=== PATIENT | male | born 1995 | race Two or more races ===

== ENCOUNTER 2017-11-06 00:31 | Emergency (ER) | payer OTHER ==
[~2017-11-06] VITALS: Ht 170.2 cm; Wt 78.5 kg
--- NOTE | 2017-11-06 00:39 | ED.ADGEN ---
Adult General Chief Complaint Chief Complaint " I did not eat well earlier today.. and probably got a little dry... I call the medic... and they had me eat and push fluids... I got dizzy at the gym tonight and some cramping in my muscles..." HPI HPI Patient is a 22 year old male who presents with above hx and complaints of dizzy episode and leg and arm cramps at the gym tonight while working out. Pt. up to date with vaccinations. No recent travel. Did spend the whole day at range, and in training. Very little to eat or drink. [facility] [employer] and was working out again and developed leg, arm, chest and flank muscle spasms. Pt. denies any specific trauma, travel or ill contacts. Pt. only urinated once today. Pt. normally healthy. Review of Systems Review of Systems Constitutional: Denies fever or chills [] Eyes: Denies change in visual acuity, redness, or eye pain [] HENT: Denies nasal congestion or sore throat [] Respiratory: Denies cough or shortness of breath [] Cardiovascular: No additional information not addressed in HPI [] GI: Denies abdominal pain, nausea, vomiting, bloody stools or diarrhea [] : Denies dysuria or hematuria [] Musculoskeletal: Denies back pain or joint pain []Muscle cramps Integument: Denies rash or skin lesions [] Neurologic: Denies headache, focal weakness or sensory changes []Dizzy episode Endocrine: Denies polyuria or polydipsia [] All other systems were reviewed and found to be within normal limits, except as documented in this note. Family History Family History Non-contributory Current Medications Current Medications Current Medications Medications (Trade) Dose Ordered Sig/Raji Start Time Stop Time Status Last Admin Dose Admin Ketorolac Tromethamine (Toradol) 30 mg 1X ONCE 11/06/17 01:30 11/06/17 01:31 DC 11/06/17 01:34 30 MG Lactated Ringer's 1,000 ml @ 1,000 mls/hr Q1H 11/06/17 01:00 11/06/17 01:59 DC 11/06/17 01:33 1,000 MLS/HR Magnesium Hydroxide (Milk Of Magnesia) 2,400 mg 1X ONCE 11/06/17 02:15 11/06/17 02:46 DC 11/06/17 02:15 2,400 MG Ondansetron HCl (Zofran) 8 mg 1X ONCE 11/06/17 01:30 11/06/17 01:31 DC 11/06/17 01:34 8 MG Potassium Chloride (KCl Oral Soln) 40 meq 1X ONCE 11/06/17 02:30 11/06/17 02:46 DC 11/06/17 02:30 40 MEQ Allergies Allergies Allergies Coded Allergies Type Severity Reaction Last Updated Verified No Known Drug Allergies 11/06/17 No Physical Exam Physical Exam Constitutional: Well developed, well nourished, no acute distress, non-toxic appearance. [] HENT: Normocephalic, atraumatic, bilateral external ears normal, oropharynx moist, no oral exudates, nose normal. [] Eyes: PERRLA, EOMI, conjunctiva normal, no discharge. [] Neck: Normal range of motion, no tenderness, supple, no stridor. [] Cardiovascular:Heart rate regular rhythm, no murmur [] Lungs & Thorax: Bilateral breath sounds clear to auscultation [] Abdomen: Bowel sounds normal, soft, no tenderness, no masses, no pulsatile masses. [] Skin: Warm, dry, no erythema, no rash. [] Back: No tenderness, no CVA tenderness. [] Extremities: No tenderness, no cyanosis, no clubbing, ROM intact, no edema. [] No cording. Neurologic: Alert and oriented X 3, normal motor function, normal sensory function, no focal deficits noted. []DTR's +2 patella and brachial. 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 Ambulatory without problems Psychologic: Affect normal, judgement normal, mood normal. [] Current Patient Data Vital Signs Vital Signs Date Time Temp Pulse Resp B/P (MAP) Pulse Ox O2 Delivery O2 Flow Rate FiO2 11/06/17 02:45 64 18 125/73 (90) 100 Room Air 11/06/17 00:32 98.2 Lab Results Laboratory Tests Test 11/06/17 00:40 11/06/17 01:10 Urine Collection Type Unknown Urine Color Yellow Urine Clarity Clear Urine pH 7.0 Urine Specific [place] <=1.005 Urine Protein Neg (NEG-TRACE) Urine Glucose (UA) Neg mg/dL (NEG) Urine Ketones (Stick) Neg mg/dL (NEG) Urine Blood Neg (NEG) Urine Nitrite Neg (NEG) Urine Bilirubin Neg (NEG) Urine Urobilinogen Dipstick 0.2 mg/dL (0.2 mg/dL) Urine Leukocyte Esterase Neg (NEG) Urine RBC 0 /HPF (0-2) Urine WBC Rare /HPF (0-4) Urine Squamous Epithelial Cells None /LPF Urine Bacteria 0 /HPF (0-FEW) White Blood Count 8.8 x10^3/uL (4.0-11.0) Red Blood Count 5.73 x10^6/uL (4.30-5.70) H Hemoglobin 17.1 g/dL (13.0-17.5) Hematocrit 49.8 % (39.0-53.0) Mean Corpuscular Volume 87 fL (79-100) Mean Corpuscular Hemoglobin 30 pg (25-35) Mean Corpuscular Hemoglobin Concent 34 g/dL (31-37) Red Cell Distribution Width 12.8 % (11.5-14.5) Platelet Count 329 x10^3/uL (140-400) Neutrophils (%) (Auto) 54 % (31-73) Lymphocytes (%) (Auto) 34 % (24-48) Monocytes (%) (Auto) 11 % (0-9) H Eosinophils (%) (Auto) 2 % (0-3) Basophils (%) (Auto) 1 % (0-3) Neutrophils # (Auto) 4.7 x10^3uL (1.8-7.7) Lymphocytes # (Auto) 3.0 x10^3/uL (1.0-4.8) Monocytes # (Auto) 0.9 x10^3/uL (0.0-1.1) Eosinophils # (Auto) 0.1 x10^3/uL (0.0-0.7) Basophils # (Auto) 0.0 x10^3/uL (0.0-0.2) Prothrombin Time 11.0 SEC (9.4-11.4) Prothrombin Time INR 1.1 (0.9-1.1) PTT 24 SEC (23-33) Sodium Level 141 mmol/L (136-145) Potassium Level 3.4 mmol/L (3.5-5.1) L Chloride Level 101 mmol/L (98-107) Carbon Dioxide Level 28 mmol/L (21-32) Anion Gap 12 (6-14) Blood Urea Nitrogen 15 mg/dL (8-26) Creatinine 0.9 mg/dL (0.7-1.3) Estimated GFR (Cockcroft-Gault) 104.6 Glucose Level 89 mg/dL (70-99) Calcium Level 9.8 mg/dL (8.5-10.1) Total Bilirubin 0.6 mg/dL (0.2-1.0) Direct Bilirubin 0.1 mg/dL (0.0-0.2) Aspartate Amino Transferase (AST) 21 U/L (15-37) Alanine Aminotransferase (ALT) 43 U/L (16-63) Alkaline Phosphatase 47 U/L (46-116) Creatine Kinase 178 U/L (39-308) Creatine Kinase MB (Mass) 1.2 ng/mL (0.0-3.6) Creatine Kinase MB Relative Index 0.7 % (0-4) Troponin I Quantitative < 0.017 ng/mL (0-0.055) Total Protein 8.2 g/dL (6.4-8.2) Albumin 4.2 g/dL (3.4-5.0) EKG EKG My interpretation of EKG shows sinus 63. No findings for STEMI with contralateral changes. [] Radiology/Procedures Radiology/Procedures I interpretation acute abdomen shows increased stool. No free air in the diaphragm. Chest shows no acute cardiopulmonary findings[] Course & Med Decision Making Course & Med Decision Making Pertinent Labs and Imaging studies reviewed. (See chart for details)- Push fruit juices. Follow up with [facility]. Return if any concerns. [] Final Impression Final Impression 1. Dehydration[] 2. Hypokalemia Problems: Dragon Disclaimer Dragon Disclaimer This electronic medical record was generated, in whole or in part, using a voice recognition dictation system. TOM PICKETT MD Nov 06, 2017 00:39
[2017-11-06] MEDS ORDERED: IV RINGERS SOLUTION,LACTATED 1,000 ML IV SCH (01:00)
--- NOTE | 2017-11-06 01:12 | EKG ---
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
[2017-11-06] MEDS ORDERED: KETOROLAC 30 MG/ML VIAL. IV ONE (01:30)
[2017-11-06] MEDS ORDERED: ONDANSETRON PF 4 MG/2 ML VIAL. IV ONE (01:30)
[2017-11-06 01:50] LABS: BASO % 1 % (0-3); EOS # 0.1 x10^3/uL (0.0-0.7); EOS % 2 % (0-3); HEMATOCRIT 49.8 % (39.0-53.0); HEMOGLOBIN 17.1 g/dL (13.0-17.5); LYMPH % 34 % (24-48); MEAN CORPUSCULAR HEMOGLOBIN 30 pg (25-35); MEAN CORPUSCULAR HGB CONC 34 g/dL (31-37); MEAN CORPUSCULAR VOLUME 87 fL (79-100); MONO # 0.9 x10^3/uL (0.0-1.1); MONO % 11 % (0-9); NEUT # 4.7 x10^3uL (1.8-7.7); NEUT % 54 % (31-73); PLATELET COUNT 329 x10^3/uL (140-400); RED BLOOD COUNT 5.73 x10^6/uL (4.30-5.70); RED CELL DISTRIBUTION WIDTH 12.8 % (11.5-14.5); WHITE BLOOD COUNT 8.8 x10^3/uL (4.0-11.0)
[2017-11-06 01:56] LABS: BILIRUBIN,URINE NEG (NEG); CLARITY,URINE CLEAR; COLOR,URINE YELLOW; GLUCOSE,URINE NEG (NEG)
[2017-11-06 01:57] LABS: BACTERIA,URINE 0 /HPF (0-FEW); NITRITE,URINE NEG (NEG); RBC,URINE 0 /HPF (0-2); UROBILINOGEN,URINE 0.2 mg/dL (0.2 mg/dL); WBC,URINE RARE /HPF (0-4)
[2017-11-06 02:08] LABS: ALBUMIN 4.2 g/dL (3.4-5.0); CALCIUM 9.8 mg/dL (8.5-10.1); CREATININE 0.9 mg/dL (0.7-1.3); DIRECT BILIRUBIN 0.1 mg/dL (0.0-0.2); GFR 104.6; POTASSIUM 3.4 mmol/L (3.5-5.1); TOTAL BILIRUBIN 0.6 mg/dL (0.2-1.0); TOTAL PROTEIN 8.2 g/dL (6.4-8.2)
[2017-11-06] MEDS ORDERED: MAGNESIUM HYDROXIDE 2,400 MG/30 ML ORAL.SUSP. PO ONE (02:15)
[2017-11-06] MEDS ORDERED: POTASSIUM CHLORIDE 20 MEQ/15 ML ORAL LIQUID. PO ONE (02:30)
[2017-11-06 02:45] VITALS: BP 125/73
--- NOTE | 2017-11-06 07:22 | RAD ---
Acute abdomen series with chest, 3 views, 11/06/2017: History: Nausea There is a moderate amount stool scattered throughout the colon. The abdominal gas pattern is otherwise unremarkable. No free air is seen in the abdomen. The stomach is mildly distended with fluid and debris. No abnormal abdominal calcifications are seen. The heart size is normal. The lungs are clear. IMPRESSION: 1. Moderate amount of stool throughout the colon. 2. Gastric distention with fluid and retained food.
== END 2017-11-06 02:45 | disposition home or self-care (01) ==
LOC: ER 00:31
DX: E86.0 Dehydration (principal); E87.6 Hypokalemia
CPT/HCPCS: 36415; 74022; 80048; 80076; 81001; 82553; 84484; 85025; 85610; 85730; 93005; 96361; 96374; 96375; 99285; J1885; J2405; J7120

== ENCOUNTER 2019-08-11 22:18 | Emergency (ER) | payer OTHER ==
[~2019-08-11] VITALS: Ht 170.2 cm; Wt 82.0 kg
[2019-08-11] MEDS ORDERED: IV RINGERS SOLUTION,LACTATED 1,000 ML IV SCH (22:24)
--- NOTE | 2019-08-11 22:32 | PHYS DOC ---
Past History Past Medical History: No Pertinent History, GERD Past Surgical History: No Surgical History Alcohol Use: None Drug Use: None Adult General Chief Complaint Chief Complaint: "... I ve been having chest pain for two days.. it seem to start after burp... but the pain runs all the way up my central chest into my neck... 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 Patient denies any previous cardiac issues or history of GERD. No history of recent travel or assignments overseas. No specific ill contacts. No recent history of travel. Patient rates pain as moderate to severe and has been constant since yesterday. Patient localizes pain in center of chest and radiates to his neck. Patient denies any history of history of coagulopathy or heart disease in his age and his family. Patient normally follows at [facility]. History of dark or tarry stools. 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 Review of Systems Review of Systems Constitutional: Denies fever or chills [] Eyes: Denies change in visual acuity, redness, or eye pain [] HENT: Denies nasal congestion or sore throat [] Respiratory: Denies cough or shortness of breath [] Cardiovascular: No additional information not addressed in HPI [] GI: Complaints of epigastric abdominal pain, nausea,. Denies vomiting, bloody stools or diarrhea [] : Denies dysuria or hematuria [] Musculoskeletal: Denies back pain or joint pain [] Integument: Denies rash or skin lesions [] Neurologic: Denies headache, focal weakness or sensory changes [] Endocrine: Denies polyuria or polydipsia [] All other systems were reviewed and found to be within normal limits, except as documented in this note. Family History Family History Noncontributory Current Medications Current Medications See nursing from [facility] Allergies Allergies Allergies Coded Allergies Type Severity Reaction Last Updated Verified No Known Drug Allergies 11/06/17 No Physical Exam Physical Exam Constitutional: Well developed, well nourished, no acute distress, non-toxic appearance. [] HENT: Normocephalic, atraumatic, bilateral external ears normal, oropharynx moist, no oral exudates, nose normal. [] Eyes: PERRLA, EOMI, conjunctiva normal, no discharge. [] Neck: Normal range of motion, no tenderness, supple, no stridor. [] Cardiovascular:Heart rate regular rhythm, no murmur [] Lungs & Thorax: Bilateral breath sounds clear to auscultation [] Abdomen: Bowel sounds normal, soft, no tenderness, no masses, no pulsatile masses. [] Skin: Warm, dry, no erythema, no rash. [] Back: No tenderness, no CVA tenderness. [] Extremities: No tenderness, no cyanosis, no clubbing, ROM intact, no edema. [] No cording appreciated Neurologic: Alert and oriented X 3, normal motor function, normal sensory function, no focal deficits noted. [] Psychologic: Affect normal, judgement normal, mood normal. [] EKG EKG EKG shows a sinus rhythm at 63 bpm. No findings acute STEMI with contralateral changes[] Radiology/Procedures Radiology/Procedures My interpretation chest x-ray shows no acute cardiopulmonary findings. No free air under the diaphragm.[] Course & Med Decision Making Course & Med Decision Making Pertinent Labs and Imaging studies reviewed. (See chart for details) Follow-up at [facility]. Patient take Tylenol for discomfort. Patient use MDI 2 puffs 4 times a day. Take Carafate 1 gm qid and Zantac 300 twice a day. . Patient return if any concerns. You may need an EGD to evaluate gastric and esophagus. Clear fluid diet for 2 days. No solid or milk products. Impression: 1. Chest Pain- suspect reflux 2. Gastritis/ GERD vs 3. Pleurisy 4. Viral syndrome [] Dragon Disclaimer Dragon Disclaimer This electronic medical record was generated, in whole or in part, using a voice recognition dictation system. Departure Departure: Disposition: 01 HOME/RESIDENCE PRIOR TO ADM Condition: STABLE Referrals: PCP,NO (PCP) Scripts Acetaminophen (ACETAMINOPHEN) 500 Mg Tablet 1000 MG PO QIDPRN PRN for PAIN, #120 TAB Prov: TOM PICKETT MD 08/12/19 Ranitidine Hcl (ZANTAC) 150 Mg Tablet 300 MG PO BID for GERD for 90 Days, #360 TAB Prov: TOM PICKETT MD 08/12/19 Sucralfate (CARAFATE) 1 Gm Tablet 1 GM PO QID for gerd for 30 Days, #120 TAB Prov: TOM PICKETT MD 08/12/19 Dragon Disclaimer This chart was dictated in whole or in part using Voice Recognition software in a busy, high-work load, and often noisy Emergency Department environment. It may contain unintended and wholly unrecognized errors or omissions. Dragon Disclaimer This chart was dictated in whole or in part using Voice Recognition software in a busy, high-work load, and often noisy Emergency Department environment. It may contain unintended and wholly unrecognized errors or omissions. TOM PICKETT MD Aug 11, 2019 22:32
--- NOTE | 2019-08-11 22:34 | EKG ---
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
[2019-08-11 22:57] LABS: BASO # 0.1 x10^3/uL (0.0-0.2); BASO % 1 % (0-3); EOS # 0.1 x10^3/uL (0.0-0.7); EOS % 1 % (0-3); HEMATOCRIT 47.2 % (39.0-53.0); LYMPH # 3.1 x10^3/uL (1.0-4.8); LYMPH % 37 % (24-48); MEAN CORPUSCULAR HEMOGLOBIN 30 pg (25-35); MEAN CORPUSCULAR HGB CONC 34 g/dL (31-37); MEAN CORPUSCULAR VOLUME 88 fL (79-100); MONO % 11 % (0-9); NEUT # 4.2 x10^3uL (1.8-7.7); NEUT % 50 % (31-73); PLATELET COUNT 328 x10^3/uL (140-400); RED BLOOD COUNT 5.38 x10^6/uL (4.30-5.70); RED CELL DISTRIBUTION WIDTH 12.7 % (11.5-14.5); WHITE BLOOD COUNT 8.4 x10^3/uL (4.0-11.0)
[2019-08-11] MEDS ORDERED: FAMOTIDINE 20 MG TABLET PO ONE (23:00)
[2019-08-11] MEDS ORDERED: ONDANSETRON ODT 4 MG TAB.RAPDIS PO ONE (23:00)
[2019-08-11] MEDS ORDERED: ACETAMINOPHEN 500 MG TABLET PO ONE (23:00)
[2019-08-11] MEDS ORDERED: MAGNESIUM HYDROXIDE 2,400 MG/30 ML ORAL.SUSP. PO ONE (23:00)
[2019-08-11] MEDS ORDERED: ASPIRIN 81 MG TAB.CHEW PO ONE (23:00)
[2019-08-11 23:03] LABS: BACTERIA,URINE 0 /HPF (0-FEW); BILIRUBIN,URINE NEG (NEG); CLARITY,URINE CLEAR; COLOR,URINE YELLOW; GLUCOSE,URINE NEG (NEG); NITRITE,URINE NEG (NEG); RBC,URINE 0 /HPF (0-2); SQUAMOUS EPITHELIAL CELL,UR OCC /LPF; UROBILINOGEN,URINE 0.2 mg/dL (0.2 mg/dL); WBC,URINE 0 /HPF (0-4)
[2019-08-11 23:04] LABS: CALCIUM 9.1 mg/dL (8.5-10.1); CREATININE 1.2 mg/dL (0.7-1.3); GFR 73.8; POTASSIUM 3.8 mmol/L (3.5-5.1)
[2019-08-11 23:16] LABS: ALBUMIN 3.7 g/dL (3.4-5.0); DIRECT BILIRUBIN 0.1 mg/dL (0.0-0.2); MAGNESIUM 2.3 mg/dL (1.8-2.4); TOTAL BILIRUBIN 0.5 mg/dL (0.2-1.0); TOTAL PROTEIN 7.7 g/dL (6.4-8.2)
[2019-08-12] MEDS ORDERED: ACET500T68 PO (00:26)
[2019-08-12] MEDS ORDERED: SUCR1TAB35 PO (00:26)
[2019-08-12] MEDS ORDERED: RANI-376 PO (00:26)
[2019-08-12 01:03] VITALS: BP 107/52
--- NOTE | 2019-08-12 08:05 | RAD ---
CHEST PA LATERAL History: Painful burping for one day. Chest pain. Comparison: None. Findings: Frontal and lateral views of the chest were obtained. The cardiomediastinal silhouette is normal. Pulmonary vasculature is normal. The lungs are clear. No pleural effusion or pneumothorax is seen. There is no acute bone abnormality. IMPRESSION: No acute cardiopulmonary process. Electronically signed by: Felix Barker MD (08/12/2019 8:02 AM) [facility]
[2019-08-12 19:20] LABS: THYROID STIM HORMONE (TSH) 1.579 uIU/mL (0.358-3.740)
== END 2019-08-12 01:10 | disposition home or self-care (01) ==
LOC: ER 22:18
DX: R09.1 Pleurisy (principal); B34.9 Viral infection, unspecified; K21.9 Gastro-esophageal reflux disease without esophagitis
CPT/HCPCS: 36415; 71046; 80048; 80061; 80076; 81001; 82550; 83690; 83735; 83880; 84443; 84484; 85025; 85379; 85610; 85730; 93005; 99285; J7120; Q0162

== ENCOUNTER 2019-12-31 17:31 | Emergency (ER) | payer OTHER ==
[~2019-12-31] VITALS: Ht 170.2 cm; Wt 82.0 kg
[~2019-12-31 17:31] MED LIST: ACET500T68 PO; RANI-376 PO; SUCR1TAB35 PO
[2019-12-31 17:35] VITALS: BP 129/73
[2019-12-31 18:09] LABS: BASO % 1 % (0-3); EOS # 0.1 x10^3/uL (0.0-0.7); EOS % 1 % (0-3); HEMATOCRIT 47.1 % (39.0-53.0); HEMOGLOBIN 15.9 g/dL (13.0-17.5); LYMPH # 2.7 x10^3/uL (1.0-4.8); LYMPH % 35 % (24-48); MEAN CORPUSCULAR HEMOGLOBIN 30 pg (25-35); MEAN CORPUSCULAR HGB CONC 34 g/dL (31-37); MEAN CORPUSCULAR VOLUME 89 fL (79-100); MONO # 0.7 x10^3/uL (0.0-1.1); MONO % 10 % (0-9); NEUT # 4.1 x10^3uL (1.8-7.7); NEUT % 54 % (31-73); PLATELET COUNT 322 x10^3/uL (140-400); RED BLOOD COUNT 5.27 x10^6/uL (4.30-5.70); RED CELL DISTRIBUTION WIDTH 13.1 % (11.5-14.5); WHITE BLOOD COUNT 7.7 x10^3/uL (4.0-11.0)
[2019-12-31 18:19] LABS: CALCIUM 9.2 mg/dL (8.5-10.1); CREATININE 1.1 mg/dL (0.7-1.3); GFR 81.6
--- NOTE | 2019-12-31 18:19 | RAD ---
ABDOMEN SUPINE UPRIGHT History: Epigastric abdominal pain. Technique: Upright and supine views of the abdomen. Comparison: November 06, 2017 Findings: Low lung volumes. Bibasilar linear atelectasis. No pneumoperitoneum. No pneumatosis. Minimal small bowel gas. Air stool scattered throughout the imaged colon. Mild gaseous distention of the stomach with air-fluid level. Impression: 1. Nonobstructed bowel gas pattern. 2. Mild gaseous distention of the stomach with air-fluid level. Electronically signed by: Carlos Peter DO (12/31/2019 6:16 PM) [facility]
[2019-12-31 18:24] LABS: ALBUMIN 3.8 g/dL (3.4-5.0); TOTAL BILIRUBIN 0.4 mg/dL (0.2-1.0); TOTAL PROTEIN 7.7 g/dL (6.4-8.2)
--- NOTE | 2019-12-31 18:31 | PHYS DOC ---
Past History Past Medical History: No Pertinent History, GERD Past Surgical History: No Surgical History Alcohol Use: None Drug Use: None General Adult EDM: Chief Complaint: ABDOMINAL PAIN HPI: HPI: 24-year-old male presents with epigastric abdominal pain. The patient has been seen for this before. He has done a trial of proton pump inhibitor and H2 kalli. It does not seem to help. His symptoms are feeling of bloating and lots of burping. Patient states that no matter what he eats whether it is food at home or at a fast food restaurant he seems to have a lot more gas and belc dorothy over the last 5 months. Sometimes he has pain afterwards it makes it difficult to sleep. He has never had this much gas before he is tried Gas-X and other [id number] medicines with no relief. He denies fever chills. His bowel movements have been normal. He has no history of this in the past. Review of Systems: Review of Systems: Constitutional: Denies fever or chills Eyes: Denies change in visual acuity HENT: Denies nasal congestion or sore throat Respiratory: Denies cough or shortness of breath Cardiovascular: Denies chest pain or edema GI: Epigastric abdominal pain. Denies nausea, vomiting, bloody stools or diarrhea : Denies dysuria Musculoskeletal: Denies back pain or joint pain Integument: Denies rash Neurologic: Denies headache, focal weakness or sensory changes Endocrine: Denies polyuria or polydipsia Lymphatic: Denies swollen glands Psychiatric: Denies depression or anxiety Heart Score: Risk Factors: Risk Factors: DM, Current or recent (<one month) smoker, HTN, HLP, family history of CAD, obesity. Risk Scores: Score 0 - 3: 2.5% MACE over next 6 weeks - Discharge Home Score 4 - 6: 20.3% MACE over next 6 weeks - Admit for Clinical Observation Score 7 - 10: 72.7% MACE over next 6 weeks - Early Invasive Strategies Allergies: Allergies: Allergies Coded Allergies Type Severity Reaction Last Updated Verified No Known Drug Allergies 12/31/19 No Physical Exam: PE: Constitutional: Well developed, well nourished, no acute distress, non-toxic appearance. [] HENT: Normocephalic, atraumatic, bilateral external ears normal, oropharynx moist, no oral exudates, nose normal. [] Eyes: PERRLA, EOMI, conjunctiva normal, no discharge. [] Neck: Normal range of motion, no tenderness, supple, no stridor. [] Cardiovascular:Heart rate regular rhythm, no murmur [] Lungs & Thorax: Bilateral breath sounds clear to auscultation [] Abdomen: Bowel sounds normal, soft, mild epigastric tenderness, no masses, no pulsatile masses. [] Skin: Warm, dry, no erythema, no rash. [] Back: No tenderness, no CVA tenderness. [] Extremities: No tenderness, no cyanosis, no clubbing, ROM intact, no edema. [] Neurologic: Alert and oriented X 3, normal motor function, normal sensory function, no focal deficits noted. [] Psychologic: Affect normal, judgement normal, mood normal. [] Current Patient Data: Labs: Laboratory Tests Test 12/31/19 17:53 White Blood Count 7.7 x10^3/uL (4.0-11.0) Red Blood Count 5.27 x10^6/uL (4.30-5.70) Hemoglobin 15.9 g/dL (13.0-17.5) Hematocrit 47.1 % (39.0-53.0) Mean Corpuscular Volume 89 fL (79-100) Mean Corpuscular Hemoglobin 30 pg (25-35) Mean Corpuscular Hemoglobin Concent 34 g/dL (31-37) Red Cell Distribution Width 13.1 % (11.5-14.5) Platelet Count 322 x10^3/uL (140-400) Neutrophils (%) (Auto) 54 % (31-73) Lymphocytes (%) (Auto) 35 % (24-48) Monocytes (%) (Auto) 10 % (0-9) H Eosinophils (%) (Auto) 1 % (0-3) Basophils (%) (Auto) 1 % (0-3) Neutrophils # (Auto) 4.1 x10^3uL (1.8-7.7) Lymphocytes # (Auto) 2.7 x10^3/uL (1.0-4.8) Monocytes # (Auto) 0.7 x10^3/uL (0.0-1.1) Eosinophils # (Auto) 0.1 x10^3/uL (0.0-0.7) Basophils # (Auto) 0.0 x10^3/uL (0.0-0.2) Sodium Level 140 mmol/L (136-145) Potassium Level 4.0 mmol/L (3.5-5.1) Chloride Level 102 mmol/L (98-107) Carbon Dioxide Level 30 mmol/L (21-32) Anion Gap 8 (6-14) Blood Urea Nitrogen 19 mg/dL (8-26) Creatinine 1.1 mg/dL (0.7-1.3) Estimated GFR (Cockcroft-Gault) 81.6 BUN/Creatinine Ratio 17 (6-20) Glucose Level 90 mg/dL (70-99) Calcium Level 9.2 mg/dL (8.5-10.1) Total Bilirubin Pending Aspartate Amino Transferase (AST) Pending Alanine Aminotransferase (ALT) Pending Alkaline Phosphatase Pending Total Protein Pending Albumin Pending Albumin/Globulin Ratio Pending Lipase Pending Vital Signs: Vital Signs Date Time Temp Pulse Resp B/P (MAP) Pulse Ox O2 Delivery O2 Flow Rate FiO2 12/31/19 17:35 98.7 65 18 129/73 (91) 100 Room Air EKG: EKG: [] Radiology/Procedures: Radiology/Procedures: [] Impressions: ABDOMEN SUPINE UPRIGHT History: Epigastric abdominal pain. Technique: Upright and supine views of the abdomen. Comparison: November 06, 2017 Findings: Low lung volumes. Bibasilar linear atelectasis. No pneumoperitoneum. No pneumatosis. Minimal small bowel gas. Air stool scattered throughout the imaged colon. Mild gaseous distention of the stomach with air-fluid level. Impression: 1. Nonobstructed bowel gas pattern. 2. Mild gaseous distention of the stomach with air-fluid level. Electronically signed by: Carlos Peter DO (12/31/2019 6:16 PM) [facility] DICTATED AND SIGNED BY: CALROS PETER DO DATE: 12/31/191815 CC: DEENA WILDER; JASON NG DO ~ Course & Med Decision Making: Course & Med Decision Making Pertinent Labs and Imaging studies reviewed. (See chart for details) The patient's labs are unremarkable. His abdominal x-ray series does show a significant amount of air in the stomach with an air-fluid level. During my interview, the patient belches 3 or 4 times. Nonsexual what is going on but I do believe he would benefit from seeing a farm instructor. I recommend that he do this as soon as possible. He likely needs an endoscopy. I do not see any acute life-threatening condition. He is stable for discharge at this time. [] Andriaon Disclaimer: Dragon Disclaimer: This electronic medical record was generated, in whole or in part, using a voice recognition dictation system. Departure Departure: Impression: Primary Impression: Epigastric abdominal pain Disposition: HOME/RESIDENCE PRIOR TO ADM Condition: STABLE Referrals: DEENA WILDER (PCP) Patient Instructions: Abdominal Pain, [id number] LUDIVINA RIBEIRO DO December 31, 2019 18:31
== END 2019-12-31 19:05 | disposition home or self-care (01) ==
LOC: ER 17:31
DX: R10.13 Epigastric pain (principal); R14.0 Abdominal distension (gaseous); K21.9 Gastro-esophageal reflux disease without esophagitis
CPT/HCPCS: 36415; 74019; 80053; 83690; 85025; 99284

== ENCOUNTER 2020-04-25 22:31 | Emergency (ER) | payer OTHER ==
[~2020-04-25] VITALS: Ht 170.2 cm; Wt 82.0 kg
--- NOTE | 2020-04-25 22:41 | PHYS DOC ---
Past History Past Medical History: No Pertinent History, GERD Past Surgical History: No Surgical History, Hip Replacement Alcohol Use: None Drug Use: None General Adult HPI: HPI: " ..Just feeling really tired, weak., dizzy..." ".. I overdid on the PT today.. I just so sick.. " ".. Cramping.. " Patient is a 25 year old male who presents with above hx and complaints of severe abdomen pain, fatigue, weakness, dizziness, cramping, after 12 hour October with 100# pack. Patient denies any history of recent fever or chills. No specific ill contacts. 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 Patient is up-to-date with vaccinations. No recent travel outside [facility]. No recent overseas TDY appointments. Patient reports he is in good physical condition because of frequent PT training. Pt. follows with [facility]. Review of Systems: Review of Systems: Constitutional: Denies fever or chills Eyes: Denies change in visual acuity HENT: Denies nasal congestion or sore throat Respiratory: Denies cough or shortness of breath Cardiovascular: Denies chest pain or edema GI: Complains of some abdomen crampy pain, nausea,. Denies vomiting, bloody stools or diarrhea : Denies dysuria Musculoskeletal: Complains of muscle cramping. Complains of fatigue. Integument: Denies rash Neurologic: Denies headache, focal weakness or sensory changes. Complaints of dizziness. Endocrine: Denies polyuria or polydipsia Lymphatic: Denies swollen glands Psychiatric: Denies depression or anxiety Heart Score: HEART Score for Chest Pain: HEART Score for Chest Pain Response (Comments) Value History Slighlty/Non-Suspicious 0 ECG Normal 0 Age < 45 0 Risk Factors No Risk Factors 0 Troponin < Normal Limit 0 Total 0 Risk Factors: Risk Factors: DM, Current or recent (<one month) smoker, HTN, HLP, family history of CAD, obesity. Risk Scores: Score 0 - 3: 2.5% MACE over next 6 weeks - Discharge Home Score 4 - 6: 20.3% MACE over next 6 weeks - Admit for Clinical Observation Score 7 - 10: 72.7% MACE over next 6 weeks - Early Invasive Strategies Family History: Family History: Noncontributory Current Medications: Current Meds: See nursing for home meds Allergies: Allergies: Allergies Coded Allergies Type Severity Reaction Last Updated Verified No Known Drug Allergies 12/31/19 No Physical Exam: PE: Constitutional: Well developed, well nourished, moderate acute distress, non- toxic appearance. [] HENT: Normocephalic, atraumatic, bilateral external ears normal, oropharynx dry, no oral exudates, nose normal. [] Eyes: PERRLA, EOMI, conjunctiva normal, no discharge. [] Neck: Normal range of motion, no tenderness, supple, no stridor. [] Cardiovascular:Heart rate regular rhythm, no murmur [] Lungs & Thorax: Bilateral breath sounds equal at apex on auscultation [] Abdomen: Bowel sounds normal, soft, mild epigastric tenderness, no masses, no pulsatile masses. [] No rebound. Skin: Warm, dry, no erythema, no rash. [] Back: No tenderness, no CVA tenderness. [] Extremities: Bilateral muscle cramping particularly in thigh, complains of generalized muscle tenderness, no cyanosis, no clubbing, ROM intact, no edema. [] No psoas sign. No cording appreciated in legs Neurologic: Alert and oriented X 3, normal motor function, normal sensory function, no focal deficits noted. [] Psychologic: Affect anxious, judgement normal, mood normal. [] EKG: EKG: My interpretation EKG shows a sinus rhythm at 80 bpm. No findings acute STEMI of contralateral changes [] Radiology/Procedures: Radiology/Procedures: [][place] [address] IMAGING REPORT Signed PATIENT: LEEANN JUAREZ ACCOUNT: [id number] : 1995 LOCATION: ER AGE: 25 SEX: M EXAM STATUS: REG ER ORD. PHYSICIAN: TOM PICKETT MD REASON: pain, PROCEDURE: ACUTE ABDOMEN SERIES Examination: Acute abdomen series HISTORY: History of pain COMPARISON: None available FINDINGS: The cardiomediastinal silhouette grossly appears unremarkable. Mild bibasilar lung airspace opacities likely atelectasis or infiltrates. The bowel gas pattern appears unremarkable. Feces and gas identified in the colon. IMPRESSION: 1. Minimal bibasilar lung atelectasis. 2. Unremarkable bowel gas pattern. Electronically signed by: Seun Boudreaux MD (04/26/2020 12:04 AM) [id number] DICTATED AND SIGNED BY: SEUN BOUDREAUX MD DATE: 04/26/20 0004 CC: DEENA WILDER; TOM PICKETT MD ~ Course & Med Decision Making: Course & Med Decision Making Pertinent Labs and Imaging studies reviewed. (See chart for details) Push clear fluids. Take Tylenol or ibuprofen for pain. Follow-up primary care. Have primary review ED record. No solids. No milk products. Clear fluids only... For the next 24 hours. Return if any concerns. Patient ambulatory without problem at time of discharge reports resolutionof all symptoms of cramping and fatigue. Impression: 1. Abdomen pain 2. Dizziness 3. Fatigue 4. Mild hypokalemia 135 5. Heat exhaustion 6. Dehydration [] Dragon Disclaimer: Dragon Disclaimer: This electronic medical record was generated, in whole or in part, using a voice recognition dictation system. Departure Departure: Disposition: 01 HOME/RESIDENCE PRIOR TO ADM Condition: STABLE Referrals: DEENA WILDER (PCP) Justification of Admission: Justification of Admission: Justification of Admission Dx: N/A Dragon Disclaimer This chart was dictated in whole or in part using Voice Recognition software in a busy, high-work load, and often noisy Emergency Department environment. It may contain unintended and wholly unrecognized errors or omissions. TOM PICKETT MD Apr 25, 2020 22:41
[2020-04-25] MEDS ORDERED: IV RINGERS SOLUTION,LACTATED 1,000 ML IV SCH (23:04)
[2020-04-25 23:26] LABS: CALCIUM 9.8 mg/dL (8.5-10.1); CREATININE 1.2 mg/dL (0.7-1.3); GFR 73.2; POTASSIUM 3.6 mmol/L (3.5-5.1)
[2020-04-25 23:27] LABS: BASO % 0 % (0-3); EOS % 0 % (0-3); HEMATOCRIT 48.6 % (39.0-53.0); HEMOGLOBIN 16.6 g/dL (13.0-17.5); LYMPH # 2.4 x10^3/uL (1.0-4.8); LYMPH % 23 % (24-48); MEAN CORPUSCULAR HEMOGLOBIN 30 pg (25-35); MEAN CORPUSCULAR HGB CONC 34 g/dL (31-37); MEAN CORPUSCULAR VOLUME 88 fL (79-100); MONO # 1.3 x10^3/uL (0.0-1.1); MONO % 12 % (0-9); NEUT # 6.8 x10^3uL (1.8-7.7); NEUT % 65 % (31-73); PLATELET COUNT 345 x10^3/uL (140-400); RED BLOOD COUNT 5.53 x10^6/uL (4.30-5.70); RED CELL DISTRIBUTION WIDTH 12.9 % (11.5-14.5); WHITE BLOOD COUNT 10.5 x10^3/uL (4.0-11.0)
[2020-04-25] MEDS ORDERED: ASPIRIN CHEWABLE 81 MG TABLET. PO ONE (23:30)
[2020-04-25] MEDS ORDERED: KETOROLAC 30 MG/ML VIAL. IVP ONE (23:30)
[2020-04-25] MEDS ORDERED: ONDANSETRON PF 4 MG/2 ML VIAL. IVP ONE (23:30)
[2020-04-25 23:35] LABS: BACTERIA,URINE 0 /HPF (0-FEW); BILIRUBIN,URINE NEG (NEG); CLARITY,URINE CLEAR; COLOR,URINE YELLOW; GLUCOSE,URINE NEG (NEG); NITRITE,URINE NEG (NEG); RBC,URINE 0 /HPF (0-2); SQUAMOUS EPITHELIAL CELL,UR OCC /LPF; UROBILINOGEN,URINE 0.2 mg/dL (0.2 mg/dL); WBC,URINE RARE /HPF (0-4)
[2020-04-25 23:41] LABS: ALBUMIN 4.5 g/dL (3.4-5.0); DIRECT BILIRUBIN 0.3 mg/dL (0.0-0.2); MAGNESIUM 2.5 mg/dL (1.8-2.4); TOTAL BILIRUBIN 1.6 mg/dL (0.2-1.0); TOTAL PROTEIN 8.6 g/dL (6.4-8.2)
[2020-04-26 00:04] LABS: BARBITURATES NEG (NEG); BENZODIAZEPINES NEG (NEG); CANNABINOIDS NEG (NEG); COCAINE NEG (NEG); METHADONE NEG (NEG); OPIATES NEG (NEG); PHENCYCLIDINE NEG (NEG)
--- NOTE | 2020-04-26 00:07 | RAD ---
Examination: Acute abdomen series HISTORY: History of pain COMPARISON: None available FINDINGS: The cardiomediastinal silhouette grossly appears unremarkable. Mild bibasilar lung airspace opacities likely atelectasis or infiltrates. The bowel gas pattern appears unremarkable. Feces and gas identified in the colon. IMPRESSION: 1. Minimal bibasilar lung atelectasis. 2. Unremarkable bowel gas pattern. Electronically signed by: Seun Boudreaux MD (04/26/2020 12:04 AM) [id number]
[2020-04-26 00:10] LABS: AMPHETAMINE/METHAMPHETAMINE NEG (NEG)
[2020-04-26] MEDS ORDERED: IV RINGERS SOLUTION,LACTATED 1,000 ML IV ONE (01:00)
[2020-04-26 02:20] VITALS: BP 132/90
--- NOTE | 2020-04-26 07:24 | EKG ---
[address] [address] Test Date: 2020-04-25 Test Time: 22:45:11 Pat Name: LEEANN JUAREZ Department: Room: Gender: M [employer] Operator: : 1995 Requested By: TOM PICKETT Order Number: [id number] Reading MD: Measurements Intervals [place] Rate: 80 P: 47 [place]: 182 QRS: 45 QRSD: 88 T: 25 QT: 364 QTc: 423 Interpretive Statements SINUS RHYTHM OTHERWISE NORMAL ECG RI6.02 No previous ECG available for comparison
== END 2020-04-26 02:20 | disposition home or self-care (01) ==
LOC: ER 22:31
DX: T67.5XXA Heat exhaustion, unspecified, initial encounter (principal); E86.0 Dehydration; R10.13 Epigastric pain; R42 Dizziness and giddiness; E87.6 Hypokalemia; R25.2 Cramp and spasm; K21.9 Gastro-esophageal reflux disease without esophagitis; X58.XXXA Exposure to other specified factors, initial encounter; Y93.89 Activity, other specified; Y92.89 Other specified places as the place of occurrence of the external cause; Y99.8 Other external cause status
CPT/HCPCS: 36415; 74022; 80048; 80076; 80307; 81001; 82150; 82550; 83690; 83735; 83880; 84443; 84484; 85025; 85379; 85610; 85730; 86705; 86709; 86803; 87340; 93005; 96361; 96374; 96375; 99285; J1885; J2405; J7120